=== PATIENT | male | born 1980 | race Caucasian/White ===

== ENCOUNTER 2024-01-06 16:42 | Observation (INO) ==
--- NOTE | 2024-01-06 17:19 | Emergency Department Note ---
Impression & Plan Alcoholic intoxication ED Provider Note NAME: JUANCHO LAFLEUR AGE: 43 SEX: M : 1980 ARRIVES VIA: Walk-In INFORMANT: Patient ED PROVIDER(S): Zaheer Metz MD CHIEF COMPLAINT: Detox request MEDICAL DECISION MAKING: Patient presents due to concern for D Crocs request. IV was established and blood work was obtained. CIWA protocol initiated. Patient is normal white count hemoglobin of 13.1 with normal platelet count. Kidney function is unremarkable. Mild transaminitis with an AST and ALT of 80 and 101. Likely consistent with the patient's alcohol use. Alcohol 368. ED case management did call [facility] and there were no beds until Saturday. The patient was not amenable for inpatient detox anywhere else other than [facility] at this time. Patient was ordered IV fluids did receive banana bag. The patient was requesting to go home. Patient was given a first dose of Librium as well as a another dose for home and a subsequent prescription. I did inform the ED physician Dr. Zepeda that the patient was pending transportation home provided a sober ride. Discussion w/ other healthcare providers: None Prior /Outside records reviewed: None Differential diagnosis: Alcohol intoxication, toxicologic, infection, hypoglycemia, electrolyte abnormalities, cardiac sources, intracerebral event, neurologic, trauma, as well as other pathologies. Diagnostics, as interpreted by me: ECG: None Cardiac monitoring: An order was placed for continuous cardiac monitoring. The monitor shows a rate of 95 with sinus rhythm. Patient was placed on pulse oximetry Medical decision rules: None Imaging studies: None HPI: Patient presents due to concern for alcohol intoxication and detox request. The patient states that he has been drinking 15 beers a day last drink at 4 PM for the last 5 or 6 days. The patient states that prior to this he had been sober for about 5 or 6 months. And prior to that he has had sobriety for years in duration. The patient states that he did have recent issues with a relationship which caused him to drink again. The patient has been drinking light beer Labat. Patient denies any chest pains or shortness of breath. No nausea or vomiting. The patient has had prior withdrawal but no seizures or DTs. PAST MEDICAL HISTORY: See Below PAST SURGICAL HISTORY: See Below SOCIAL HISTORY: See Below HOME MEDICATIONS: See Below ALLERGIES: See Below VITALS: See Below PHYSICAL EXAMINATION: GENERAL: NAD, non-toxic. Wearing glasses. EYE EXAM: Normal conjunctiva. PERRL, no anisocoria and EOM's grossly intact w/o pain. OROPHARYNX: Moist mucus membranes, grossly normal dentition. NECK: Trachea midline, no stridor. LUNGS: Clear to auscultation. Normal chest wall mechanics. HEART: NSR, no MRG. ABDOMEN: Abdomen soft, non-tender, no masses, no rebound or guarding. BACK: No CVA TTP. SKIN: No rashes and no bruising. UPPER EXTREMITIES: Upper extremities are grossly normal. LOWER EXTREMITIES: Grossly normal, no edema. NEURO EXAM: A&O x3, cranial nerves II-XII grossly intact, slow deliberate speech, moves all 4 extremities. Past Med/Surg History Problem List Alcohol withdrawal Alcoholic intoxication (Acute) Social History Smoking Status: Former smoker Tobacco Type: E-cigarettes / Vaping Smoking End Date: "2 years ago"; Hx Alcohol Use: Yes Alcohol type: beer Hx Substance Use: No Preferred Language: Korean Communication Ability: Effective Risk And Insurance Consultant Required: No Beliefs That Will Affect Care: None Current Living Situation: Alone Other Information That Helps Us Care for You: No Feels Safe at Home: Yes Safety Concerns: Feels Safe At This Time Allergies Allergies Allergy/AdvReac Type Severity Reaction Status Date / Time No Known Allergies Allergy Unverified 01/06/24 19:16 Home Meds Previous Rx's Medication Instructions Recorded chlordiazepoxide HCl 25 mg capsule See Rx Instructions .Route 01/06/24 .COMPLEX #20 caps Results & Data (ED) Vital Signs Vital Signs - 24 hr 01/06/24 16:55 01/06/24 17:24 01/06/24 17:26 Temperature 36.9 C Temperature Source Temporal Artery Scan Pulse Rate 95 H Pulse Rate [Apical] 79 Pulse Rate from SpO2 Sensor Pulse Rhythm [Apical] Regular Respiratory Rate 16 20 Respiratory Effort / Characteristics Non-Labored Spontaneous Non-Labored Spontaneous Respiratory Depth Normal Normal Respiratory Pattern Regular Blood Pressure 156/101 H 156/102 H Blood Pressure [Right Arm] 156/102 H Blood Pressure Mean 119 118 Blood Pressure Mean [Right Arm] 120 Blood Pressure Position Sitting Pulse Oximetry 98 98 Oxygen Delivery Method Room Air Room Air Sepsis Recent Fever Within 48 Hours No Sepsis New/Unexplained Change in Mental Status N/A Sepsis Action Taken by Nursing No Action Required 01/06/24 17:27 01/06/24 17:27 01/06/24 17:30 Temperature Temperature Source Pulse Rate 76 66 Pulse Rate [Apical] Pulse Rate from SpO2 Sensor 67 Pulse Rhythm [Apical] Respiratory Rate 20 15 Respiratory Effort / Characteristics Respiratory Depth Respiratory Pattern Blood Pressure 125/95 Blood Pressure [Right Arm] Blood Pressure Mean 110 Blood Pressure Mean [Right Arm] Blood Pressure Position Pulse Oximetry 99 99 Oxygen Delivery Method Room Air Sepsis Recent Fever Within 48 Hours Sepsis New/Unexplained Change in Mental Status Sepsis Action Taken by Nursing 01/06/24 17:30 01/06/24 17:40 01/06/24 18:06 Temperature Temperature Source Pulse Rate 82 82 Pulse Rate [Apical] Pulse Rate from SpO2 Sensor 82 69 Pulse Rhythm [Apical] Respiratory Rate 21 Respiratory Effort / Characteristics Respiratory Depth Respiratory Pattern Blood Pressure Blood Pressure [Right Arm] Blood Pressure Mean Blood Pressure Mean [Right Arm] Blood Pressure Position Pulse Oximetry 96 97 Oxygen Delivery Method Sepsis Recent Fever Within 48 Hours Sepsis New/Unexplained Change in Mental Status Sepsis Action Taken by Nursing 01/06/24 18:07 01/06/24 18:15 01/06/24 18:27 Temperature Temperature Source Pulse Rate 80 68 Pulse Rate [Apical] Pulse Rate from SpO2 Sensor Pulse Rhythm [Apical] Respiratory Rate 15 14 Respiratory Effort / Characteristics Respiratory Depth Respiratory Pattern Blood Pressure 133/87 Blood Pressure [Right Arm] Blood Pressure Mean 100 Blood Pressure Mean [Right Arm] Blood Pressure Position Pulse Oximetry Oxygen Delivery Method Sepsis Recent Fever Within 48 Hours Sepsis New/Unexplained Change in Mental Status Sepsis Action Taken by Nursing 01/06/24 18:30 01/06/24 18:33 01/06/24 18:42 Temperature Temperature Source Pulse Rate 76 65 Pulse Rate [Apical] Pulse Rate from SpO2 Sensor Pulse Rhythm [Apical] Respiratory Rate 20 10 L Respiratory Effort / Characteristics Respiratory Depth Respiratory Pattern Blood Pressure 126/88 Blood Pressure [Right Arm] Blood Pressure Mean 94 Blood Pressure Mean [Right Arm] Blood Pressure Position Pulse Oximetry Oxygen Delivery Method Sepsis Recent Fever Within 48 Hours Sepsis New/Unexplained Change in Mental Status Sepsis Action Taken by Nursing 01/06/24 18:54 01/06/24 19:00 01/06/24 19:03 Temperature Temperature Source Pulse Rate 67 Pulse Rate [Apical] 72 Pulse Rate from SpO2 Sensor Pulse Rhythm [Apical] Respiratory Rate 13 20 Respiratory Effort / Characteristics Non-Labored Spontaneous Respiratory Depth Normal Respiratory Pattern Blood Pressure 125/87 Blood Pressure [Right Arm] 125/87 Blood Pressure Mean 105 Blood Pressure Mean [Right Arm] 99 Blood Pressure Position Pulse Oximetry 96 Oxygen Delivery Method Sepsis Recent Fever Within 48 Hours Sepsis New/Unexplained Change in Mental Status Sepsis Action Taken by Nursing 01/06/24 19:03 01/06/24 21:48 01/06/24 21:59 Temperature Temperature Source Pulse Rate 75 102 H Pulse Rate [Apical] 95 H Pulse Rate from SpO2 Sensor Pulse Rhythm [Apical] Respiratory Rate 11 L 20 Respiratory Effort / Characteristics Respiratory Depth Respiratory Pattern Blood Pressure Blood Pressure [Right Arm] 149/109 H Blood Pressure Mean Blood Pressure Mean [Right Arm] 122 Blood Pressure Position Pulse Oximetry 95 Oxygen Delivery Method Room Air Sepsis Recent Fever Within 48 Hours Sepsis New/Unexplained Change in Mental Status Sepsis Action Taken by Nursing 01/06/24 22:24 Temperature 36.9 C Temperature Source Pulse Rate 96 H Pulse Rate [Apical] Pulse Rate from SpO2 Sensor Pulse Rhythm [Apical] Respiratory Rate 20 Respiratory Effort / Characteristics Respiratory Depth Respiratory Pattern Blood Pressure 157/96 H Blood Pressure [Right Arm] Blood Pressure Mean 116 Blood Pressure Mean [Right Arm] Blood Pressure Position Pulse Oximetry 99 Oxygen Delivery Method Room Air Sepsis Recent Fever Within 48 Hours Sepsis New/Unexplained Change in Mental Status Sepsis Action Taken by Shelter Medications Current Medication List: was personally reviewed by me Laboratory Data Attestation: I reviewed the patient's lab results. 01/07/24 05:40 01/07/24 05:40 Lab Results 01/06/24 Range/Units 17:02 WBC 5.09 (4.8-10.8) K/ul RBC 7.06 H (4.70-6.10) M/uL Hgb 13.1 L (14.0-18.0) g/dl Hct 42.3 (42.0-52.0) % MCV 59.9 L (80.0-100.0) fL MCH 18.6 L (25.0-34.0) pg MCHC 31.0 L (32.0-36.0) g/dL RDW Std Deviation 30.9 L (36.4-46.3) fL RDW Coeff of Leda 18.3 H (11.5-14.5) % Plt Count 173 (130-400) K/uL MPV 10.7 (9.4-12.4) fL Immature Gran % (Auto) 0.4 % Neut % (Auto) 59.2 % Lymph % (Auto) 31.0 % [place] % (Auto) 8.6 % Eos % (Auto) 0.2 % Baso % (Auto) 0.6 % Neut # (Auto) 3.01 (1.40-6.50) K/uL Lymph # (Auto) 1.58 (1.20-3.40) K/uL [place] # (Auto) 0.44 (0.11-0.59) K/uL Eos # (Auto) 0.01 (0.00-0.50) K/uL Baso # (Auto) 0.03 (0.00-0.20) K/uL Immature Gran # (Auto) 0.02 (0.01-0.20) K/uL Absolute Nucleated RBC 0.04 (0.00-0.12) K/uL Nucleated RBC % (auto) 0.8 % Hypochromasia Present Microcytosis Present Target Cells 1+ Tear Drop Cells 1+ PT 10.0 (9.0-12.0) Seconds INR 0.9 (0.9-1.1) Sodium 140 (136-145) mmol/L Potassium 4.2 (3.5-5.1) mmol/L Chloride 101 (98-107) mmol/L Carbon Dioxide 30 (21-32) mmol/L Anion Gap 9 (3-11) BUN 4 L (6-23) mg/dl Creatinine 0.77 (0.6-1.4) mg/dl Est Cr Clr Drug Dosing 123.7 ml/min eGFR 113.92 BUN/Creatinine Ratio 5.2 L (10-20) Glucose 110 H (70-99(Fasting)) mg/dl Calcium 9.2 (8.6-10.3) mg/dl Magnesium 2.1 (1.7-2.4) mg/dl Total Bilirubin 0.7 (0.2-1.0) mg/dl Direct Bilirubin 0.1 (0-0.2) mg/dl AST 80 H (13-39) U/L ALT 101 H (7-52) U/L Alkaline Phosphatase 61 (34-104) U/L Total Protein 7.2 (6.0-8.3) gm/dl Albumin 4.7 (3.4-5.0) gm/dl Lipase 21 (11-82) U/L Ethyl Alcohol mg/dL 368.9 H (<10.0) mg/dl Administered Medications Discontinued Medications Chlordiazepoxide HCl (Chlordiazepoxide Hcl 25 Mg Cap) 50 mg PO NOW ONE Stop: 01/06/24 19:05 Last Admin: 01/06/24 20:26 Dose: 50 mg Documented By: SORAYA Chlordiazepoxide HCl (Chlordiazepoxide 25mg Starting Dose) 25 mg PO Q6H FRAN; Protocol Stop: 01/07/24 20:01 Last Admin: 01/07/24 08:13 Dose: 25 mg Documented By: Admin: 01/07/24 01:10 Dose: 25 mg Documented By: FABIEN Clonidine HCl (Clonidine Hcl 0.1 Mg Tab) 0.1 mg PO NOW ONE Stop: 01/06/24 22:49 Last Admin: 01/06/24 23:44 Dose: 0.1 mg Documented By: FABIEN Folic Acid (F[facility] Acid 1 Mg Tab) [facility] [place] Stop: 02/06/24 08:59 Last Admin: 01/07/24 08:12 Dose: 1 mg Documented By: NANCY Sodium Chloride (Nss) 1,000 mls @ 999 mls/hr IV .Q1H1M ONE Stop: 01/06/24 18:59 Last Infusion: 01/06/24 19:00 Dose: Infused Documented By: Admin: 01/06/24 18:07 Dose: 999 mls/hr Documented By: SIDDHARTH Multivitamins 10 ml/ Thiamine HCl 100 mg/ Folic Acid 1 mg/Sodium Chloride 1,011.2 mls @ 500 mls/hr IV .Q2H2M ONE Stop: 01/06/24 20:00 Last Infusion: 01/06/24 20:30 Dose: Infused Documented By: Admin: 01/06/24 19:02 Dose: 500 mls/hr Documented By: SORAYA Promethazine HCl (Phenergan) 6.25 mg in 50.25 mls @ 201 mls/hr IV Q6H PRN PRN Reason: Nausea And Vomiting Stop: 02/05/24 22:36 Last Infusion: 01/07/24 06:25 Dose: Infused Documented By: Admin: 01/07/24 06:10 Dose: 201 mls/hr Documented By: FABIEN Lorazepam (Lorazepam 2 Mg/1 Ml Vial) 1 mg IV ONE PRN; Protocol PRN Reason: EtoH Withdrawal AWSS 6-10 Last Admin: 01/06/24 18:54 Dose: 1 mg Documented By: SORAYA Lorazepam (Lorazepam 2 Mg/1 Ml Vial) 1 mg IV UD PRN; Protocol PRN Reason: EtOH Withdrawal AWSS Score 6,7 Stop: 02/05/24 17:58 Last Admin: 01/07/24 08:11 Dose: 1 mg Documented By: NANCY Lorazepam (Lorazepam 2 Mg/1 Ml Vial) 2 mg IV UD PRN; Protocol PRN Reason: EtOH Withdrawal AWSS Score 8,9 Stop: 02/05/24 17:58 Last Admin: 01/07/24 00:11 Dose: 2 mg Documented By: FABIEN Lorazepam (Lorazepam 2 Mg/1 Ml Vial) 1 mg IV NOW STA Stop: 01/06/24 21:43 Last Admin: 01/06/24 22:23 Dose: 1 mg Documented By: SIDDHARTH Multivitamins (Multivitamin Tab) 1 tab PO [facility] Stop: 02/06/24 08:59 Last Admin: 01/07/24 08:11 Dose: 1 tab Documented By: NANCY Thiamine HCl (Thiamine Hcl 100 Mg Tab) [facility] [place] Stop: 02/06/24 08:59 Last Admin: 01/07/24 08:12 Dose: 100 mg Documented By: NANCY Discharge Plan Visit Data Chief Complaint: Alcohol Withdrawal Stated Complaint: ALCOHOL POISONING,RINGING IN THE EARS ED Provider: Pawan Bird Discharge Problem: Alcoholic intoxication Patient Disposition: Home - Self-Care Discharge Instructions Interventions: ED Discharge Assessment Last Done: 01/06/24 23:15 Discharge Problem: Alcoholic intoxication Qualifiers: Complication of substance-induced condition: uncomplicated Qualified Code(s): F 10.920 - Alcohol use, unspecified with intoxication, uncomplicated
[2024-01-06 17:51] LABS: BUN Creatinine Ratio 5.2 (10-20); Calcium 9.2 mg/dl (8.6-10.3); Creatinine Clr Calc Pharmacy 123.7 ml/min; Potassium 4.2 mmol/L (3.5-5.1)
[2024-01-06] MEDS ORDERED: Ativan IV Alcohol Withdrawal--Active Protocol IV PRN (17:59)
[2024-01-06] MEDS ORDERED: LORazepam 2 MG/1 ML VIAL IV PRN (17:59)
[2024-01-06 18:04] LABS: Hematocrit (blood only) 42.3 % (42.0-52.0); Hemoglobin 13.1 g/dl (14.0-18.0); Mean Corpuscular Hemoglobin 18.6 pg (25.0-34.0); Mean Corpuscular Volume 59.9 fL (80.0-100.0); Mean Platelet Volume 10.7 fL (9.4-12.4); Nucleated RBC # (auto) 0.04 K/uL (0.00-0.12); Nucleated RBC % (auto) 0.8 %; Platelet Count 173 K/uL (130-400); RDW Coefficient of Variation 18.3 % (11.5-14.5); RDW Standard Deviation 30.9 fL (36.4-46.3); Red Blood Count 7.06 M/uL (4.70-6.10); White Blood Count 5.09 K/ul (4.8-10.8)
[2024-01-06 18:06] LABS: Albumin Level 4.7 gm/dl (3.4-5.0); Bilirubin Direct 0.1 mg/dl (0-0.2); Bilirubin,Total 0.7 mg/dl (0.2-1.0); Total Protein 7.2 gm/dl (6.0-8.3)
[2024-01-06] MEDS: SODIUM CHLORIDE 0.9% 1,000 ML IV ONE (18:07)
[2024-01-06 18:11] LABS: Basophils # (auto) 0.03 K/uL (0.00-0.20); Basophils % (auto) 0.6 %; Eosinophils # (auto) 0.01 K/uL (0.00-0.50); Eosinophils % (auto) 0.2 %; Immature Granulocytes # (auto) 0.02 K/uL (0.01-0.20); Immature Granulocytes % (auto) 0.4 %; Lymphocytes # (auto) 1.58 K/uL (1.20-3.40); Microcytosis Present; Monocytes # (auto) 0.44 K/uL (0.11-0.59); Monocytes % (auto) 8.6 %; Neutrophils # (auto) 3.01 K/uL (1.40-6.50); Neutrophils % (auto) 59.2 %; Target Cells 1+; Tear Drop Cells 1+
[2024-01-06] MEDS: LORazepam 2 MG/1 ML VIAL IV PRN (18:54)
[2024-01-06] MEDS: MULTI-VITAMIN INFUSION 10 ML, THIAMINE HCL 100 MG, FOLIC ACID 1 MG in SODIUM CHLORIDE 0... IV ONE (19:02)
[2024-01-06] MEDS: chlordiazePOXIDE HCl 25 MG CAP PO ONE (20:26)
--- NOTE | 2024-01-06 21:58 | Emergency Department Note ---
ED Visit Note I was asked by the bedside nurse to assist with disposition of the patient as he was scheduled for discharge pending a sober ride home. Nurse received a phone call from the patient's daughter stating that she had concerns that he was not safe to be discharged. Patient lives alone and she was concerned that he will continue to binge drink and might be potentially a harm to himself. I did discuss the patient's presentation with the patient's daughter, Ida, over the phone. She strongly prefers that the patient be admitted to the hospital to arrange for placement to inpatient rehab. I addressed this with the patient, he eventually was agreeable to stay and he was beginning to exhibit signs of withdrawal as he had some resting tremors. He was ordered a dose of IV Ativan. Given the concern for withdrawal with the patient's elevated alcohol level, I did discuss the patient's presentation with the on-call hospitalist for [facility] [place], Dr. Gunter, the patient was placed for admission in stable condition for further care. Diagnosis: Alcohol intoxication with acute withdrawal symptoms Disposition: Admission Pawan Bird DO .
[2024-01-06] MEDS: LORazepam 2 MG/1 ML VIAL IV STA (22:23)
[2024-01-06 22:27] LABS: Magnesium 2.1 mg/dl (1.7-2.4)
--- NOTE | 2024-01-06 22:35 | History & Physical Report ---
Date of Service January 06, 2024 Assessment & Plan (1) Alcohol withdrawal: Plan: Alcohol withdrawal Mood disorder, currently not on maintenance medications, does not feel previous medications have helped before, denies suicidality bronchial asthma, stable Alcoholic hepatitis, likely good prognosis on Maddrey's DF score given normal coags chronic anemia, hemoglobin better than baseline likely secondary to hemoconcentration Hyperglycemia with DM past tobacco abuse Admit to medical telemetry DARCY S, DT precautions Psych consult re: depression Check hemoglobin A1c DVT prophylaxis with SCDs Full code Text document was generated using [employer] voice recognition software. It may contain grammatical or spelling errors. Kindly contact undersigned for clarification of any documentation item in question. History of Present Illness Chief Complaint: Detox Primary Care Provider: Nancy Alonso MD History obtained from patient and records. Medical history significant for bronchial asthma, mood disorder, chronic anemia (baseline hemoglobin 11), thalassemia minor, alcohol abuse, past tobacco abuse. Patient presented to ER today requesting for detox. Admits to depression but denies suicidality. Denies chest pain, SOB, abdominal pain. Transient headache symptoms. Patient will be able to be accepted at [facility] addiction center until this weekend. Patient and family have concerns about patient ability to be safe at home on his own. Patient later noted to be tremulous at the ER. 2 doses of IV Ativan and Librium administered at the ER. No prior history of alcohol withdrawal seizures. Patient recalls detox admission at some facility where he was given phenobarbital. 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 Allergies Allergy/AdvReac Type Severity Reaction Status Date / Time No Known Allergies Allergy Unverified 01/06/24 19:16 Home Medications Medication Instructions Recorded Confirmed Type chlordiazepoxide HCl 25 mg capsule See Rx Instructions .Route 01/06/24 Rx .COMPLEX #20 caps Past Med/Surg History Problem List (Updated 01/07/24 @ 03:47 by Manuel Gunter MD) Alcohol withdrawal Alcoholic intoxication (Acute) Social History Smoking Status: Former smoker Tobacco Type: E-cigarettes / Vaping Smoking End Date: "2 years ago"; Hx Alcohol Use: Yes Alcohol type: beer Hx Substance Use: No Preferred Language: Malaysian Communication Ability: Effective Harbormaster Required: No Beliefs That Will Affect Care: None Current Living Situation: Alone Other Information That Helps Us Care for You: No Feels Safe at Home: Yes Safety Concerns: Feels Safe At This Time Review of Systems Review of Systems: As per HPI, all other systems reviewed and negative Physical Exam Physical Exam: GENERAL: Comfortable, slightly anxious, tremulous, no respiratory distress SKIN: Pallor, warm HEENT: Bespectacled, pale, palpebral conjunctivae, no ptosis, dry buccal mucosa NECK : Supple, no tenderness CHEST : CTA, no tenderness HEART : RRR, no obvious murmurs ABDOMEN: Some distention, nontender EXTREMITIES : No LE swelling/tenderness, no other conspicuous deformities noted NEUROLOGIC : Coherent, no facial asymmetry, tremulous, no other gross focality Results & Data Results & Data Vital Signs (Past 12 Hours) Vital Signs Temp Pulse Pulse Resp BP BP Pulse Ox 01/06/24 22:24 36.9 C 96 H 20 157/96 H 99 01/06/24 21:59 95 H 20 149/109 H 95 01/06/24 21:48 102 H 01/06/24 19:03 75 11 L 01/06/24 19:03 125/87 01/06/24 19:00 72 20 125/87 96 01/06/24 18:54 67 13 01/06/24 18:42 65 10 L 01/06/24 18:33 76 20 01/06/24 18:30 126/88 01/06/24 18:27 68 14 01/06/24 18:15 80 15 01/06/24 18:07 133/87 01/06/24 18:06 97 01/06/24 17:40 82 01/06/24 17:30 82 21 96 01/06/24 17:30 125/95 01/06/24 17:27 66 15 99 01/06/24 17:27 76 20 99 01/06/24 17:26 79 20 156/102 H 98 01/06/24 17:24 156/102 H 01/06/24 16:55 36.9 C 95 H 16 156/101 H 98 O2 Del Method 01/06/24 22:24 Room Air 01/06/24 21:59 Room Air 01/06/24 21:48 01/06/24 19:03 01/06/24 19:03 01/06/24 19:00 01/06/24 18:54 01/06/24 18:42 01/06/24 18:33 01/06/24 18:30 01/06/24 18:27 01/06/24 18:15 01/06/24 18:07 01/06/24 18:06 01/06/24 17:40 01/06/24 17:30 01/06/24 17:30 01/06/24 17:27 01/06/24 17:27 Room Air 01/06/24 17:26 Room Air 01/06/24 17:24 01/06/24 16:55 Room Air Laboratory Results Laboratory Results WBC 5.09 K/ul (4.8-10.8) 01/06/24 17:02 RBC 7.06 M/uL (4.70-6.10) H 01/06/24 17:02 Hgb 13.1 g/dl (14.0-18.0) L 01/06/24 17:02 Hct 42.3 % (42.0-52.0) 01/06/24 17:02 MCV 59.9 fL (80.0-100.0) L 01/06/24 17:02 MCH 18.6 pg (25.0-34.0) L 01/06/24 17:02 MCHC 31.0 g/dL (32.0-36.0) L 01/06/24 17:02 RDW Std Deviation 30.9 fL (36.4-46.3) L 01/06/24 17:02 RDW Coeff of Ldea 18.3 % (11.5-14.5) H 01/06/24 17:02 Plt Count 173 K/uL (130-400) 01/06/24 17:02 MPV 10.7 fL (9.4-12.4) 01/06/24 17:02 Immature Gran % (Auto) 0.4 % 01/06/24 17:02 Neut % (Auto) 59.2 % 01/06/24 17:02 Lymph % (Auto) 31.0 % 01/06/24 17:02 [place] % (Auto) 8.6 % 01/06/24 17:02 Eos % (Auto) 0.2 % 01/06/24 17:02 Baso % (Auto) 0.6 % 01/06/24 17:02 Neut # (Auto) 3.01 K/uL (1.40-6.50) 01/06/24 17:02 Lymph # (Auto) 1.58 K/uL (1.20-3.40) 01/06/24 17:02 [place] # (Auto) 0.44 K/uL (0.11-0.59) 01/06/24 17:02 Eos # (Auto) 0.01 K/uL (0.00-0.50) 01/06/24 17:02 Baso # (Auto) 0.03 K/uL (0.00-0.20) 01/06/24 17:02 Immature Gran # (Auto) 0.02 K/uL (0.01-0.20) 01/06/24 17:02 Absolute Nucleated RBC 0.04 K/uL (0.00-0.12) 01/06/24 17:02 Nucleated RBC % (auto) 0.8 % 01/06/24 17:02 Microcytosis Present 01/06/24 17:02 Target Cells 1+ 01/06/24 17:02 Tear Drop Cells 1+ 01/06/24 17:02 Sodium 140 mmol/L (136-145) 01/06/24 17:02 Potassium 4.2 mmol/L (3.5-5.1) 01/06/24 17:02 Chloride 101 mmol/L (98-107) 01/06/24 17:02 Carbon Dioxide 30 mmol/L (21-32) 01/06/24 17:02 Anion Gap 9 (3-11) 01/06/24 17:02 BUN 4 mg/dl (6-23) L 01/06/24 17:02 Creatinine 0.77 mg/dl (0.6-1.4) 01/06/24 17:02 Est Cr Clr Drug Dosing 123.7 ml/min 01/06/24 17:02 eGFR 113.92 01/06/24 17:02 BUN/Creatinine Ratio 5.2 (10-20) L 01/06/24 17:02 Glucose 110 mg/dl (70-99(Fasting)) H 01/06/24 17:02 Calcium 9.2 mg/dl (8.6-10.3) 01/06/24 17:02 Magnesium 2.1 mg/dl (1.7-2.4) 01/06/24 17:02 Total Bilirubin 0.7 mg/dl (0.2-1.0) 01/06/24 17:02 Direct Bilirubin 0.1 mg/dl (0-0.2) 01/06/24 17:02 AST 80 U/L (13-39) H 01/06/24 17:02 ALT 101 U/L (7-52) H 01/06/24 17:02 Alkaline Phosphatase 61 U/L (34-104) 01/06/24 17:02 Total Protein 7.2 gm/dl (6.0-8.3) 01/06/24 17:02 Albumin 4.7 gm/dl (3.4-5.0) 01/06/24 17:02 Lipase 21 U/L (11-82) 01/06/24 17:02 Ethyl Alcohol mg/dL 368.9 mg/dl (<10.0) H 01/06/24 17:02 Diagnostic Findings EKG as per my interpretation :Rate 85, NSR, LAD, LAFB, no ischemia
[2024-01-06] MEDS ORDERED: oxyCODONE HCL IR 5 MG TAB (IMMEDIATE RELEASE) PO PRN (22:37)
[2024-01-06] MEDS ORDERED: ACETAMINOPHEN 500 MG TAB PO PRN (22:37)
[2024-01-06] MEDS ORDERED: chlordiazePOXIDE ALCOHOL WITHDRAWL 25MG PO STA (22:37)
[2024-01-06 22:38] LABS: INR 0.9 (0.9-1.1)
[2024-01-06] MEDS: cloNIDine HCL 0.1 MG TAB PO ONE (23:44)
[2024-01-07] MEDS: LORazepam 2 MG/1 ML VIAL IV PRN ×2 (00:11→08:11)
[2024-01-07] MEDS: CHLORDIAZEPOXIDE 25MG STARTING DOSE PO SCH (01:10)
[2024-01-07] MEDS: PROMETHAZINE 6.25 MG/50.25 ML BAG IV PRN (06:10)
[2024-01-07 06:23] LABS: Hematocrit (blood only) 34.8 % (42.0-52.0); Mean Corpuscular Hemoglobin 18.8 pg (25.0-34.0); Mean Corpuscular Hgb Conc 31.6 g/dL (32.0-36.0); Mean Corpuscular Volume 59.5 fL (80.0-100.0); Mean Platelet Volume 10.7 fL (9.4-12.4); Nucleated RBC # (auto) 0.03 K/uL (0.00-0.12); Nucleated RBC % (auto) 0.5 %; Platelet Count 145 K/uL (130-400); RDW Coefficient of Variation 16.9 % (11.5-14.5); RDW Standard Deviation 30.6 fL (36.4-46.3); Red Blood Count 5.85 M/uL (4.70-6.10)
[2024-01-07 06:24] LABS: Albumin Globulin Ratio 2.1 (0.9-2); Calcium 8.6 mg/dl (8.6-10.3); Creatinine Clr Calc Pharmacy 136.1 ml/min; Globulin 1.9 gm/dl (2.5-4.0); Total Protein 5.9 gm/dl (6.0-8.3)
[2024-01-07 06:35] LABS: Basophilic Stippling Occasional; Basophils # (auto) 0.03 K/uL (0.00-0.20); Basophils % (auto) 0.5 %; Immature Granulocytes # (auto) 0.03 K/uL (0.01-0.20); Immature Granulocytes % (auto) 0.5 %; Lymphocytes % (auto) 26.2 %; Microcytosis Present; Monocytes # (auto) 0.46 K/uL (0.11-0.59); Monocytes % (auto) 7.5 %; Neutrophils # (auto) 3.98 K/uL (1.40-6.50); Neutrophils % (auto) 65.3 %; Polychromasia 1+; Tear Drop Cells Occasional
[2024-01-07 07:17] LABS: Hypochromasia Present
[2024-01-07 07:50] LABS: Estimated Average Glucose 105 mg/dl; Hemoglobin A1C 5.3 % (4.5-5.6)
[2024-01-07] MEDS: MULTIVITAMIN TAB PO SCH (08:11)
[2024-01-07] MEDS: THIAMINE HCL 100 MG TAB PO SCH (08:12)
[2024-01-07] MEDS: FOLIC ACID 1 MG TAB PO SCH (08:12)
--- NOTE | 2024-01-07 08:48 | Electrocardiogram Report ---
Test Reason : Blood Pressure : */* mmHG Vent. Rate : 87 BPM Atrial Rate : 87 BPM P-R Int : 138 ms QRS Dur : 90 ms QT Int : 386 ms P-R-T Axes : -13 3 -25 degrees QTcB Int : 464 ms Normal sinus rhythm Low voltage QRS Borderline ECG When compared with ECG of 29-Jun-2021 15:40, No significant change was found Confirmed by Nasir Stovall ([id number]) on 01/07/2024 8:47:45 AM Referred By: REFERRED SELF Confirmed By: Nasir Stovall
--- NOTE | 2024-01-07 11:56 | Hospitalist Progress Note ---
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 Chronic anemia Hb stable Monitor Past tobacco abuse Per records DVT Px: SCDs Code Status Full code Admission and Anticipated Discharge Date Admission Date: January 06, 2024 Subjective Patient is seen and examined at bedside States feeling tired and sleepy this morning during my encounter Denies any chest pain, dizziness, nausea, vomiting, abdominal pain Review of Systems 2 Review of Systems: All systems reviewed & are unremarkable except as noted in Subjective Physical Exam Physical Exam: Physical Exam: Vitals signs as noted above General Appearance:Moderately built and nourished, no apparent distress Head: normocephalic, Atraumatic Eyes: normal inspection, EOMI Neck: supple, Trachea midline Respiratory/Chest: Normal breath sounds, CTA, No accessory muscle use Cardiovascular: S1, S2, No murmur Abdomen/GI:Soft, Non tender, Bowel sounds present Extremities/Musculoskeletal:normal inspection, no edema Neurologic/Psych:AAOX3, grossly no focal neurological deficits Skin: normal color, warm Results & Data Results & Data Vital Signs (Past 12 Hours) Vital Signs Temp Pulse Pulse Resp BP BP Pulse Ox 01/07/24 11:33 36.6 C 85 18 141/87 H 99 01/07/24 07:49 36.8 C 82 18 142/70 H 96 01/07/24 05:58 88 01/07/24 05:35 36.5 C 91 H 16 137/93 100 01/07/24 03:03 36.6 C 85 16 134/74 97 01/07/24 01:04 36.8 C 102 H 16 141/87 H 96 01/07/24 00:02 O2 Del Method 01/07/24 11:33 Room Air 01/07/24 07:49 Room Air 01/07/24 05:58 01/07/24 05:35 Room Air 01/07/24 03:03 Room Air 01/07/24 01:04 Room Air 01/07/24 00:02 Room Air Laboratory Results Short CBC 01/06/24 01/07/24 Range/Units 17:02 05:40 WBC 5.09 6.10 (4.8-10.8) K/ul Hgb 13.1 L 11.0 L (14.0-18.0) g/dl Hct 42.3 34.8 L (42.0-52.0) % Plt Count 173 145 (130-400) K/uL BMP 01/06/24 01/07/24 17:02 05:40 Sodium 140 137 Potassium 4.2 4.0 Chloride 101 102 Carbon Dioxide 30 27 BUN 4 L 7 Creatinine 0.77 0.70 Glucose 110 H 99 Calcium 9.2 8.6 Liver Function 01/06/24 01/07/24 Range/Units 17:02 05:40 Total Bilirubin 0.7 1.0 (0.2-1.0) mg/dl Direct Bilirubin 0.1 (0-0.2) mg/dl AST 80 H 58 H (13-39) U/L ALT 101 H 81 H (7-52) U/L Alkaline Phosphatase 61 53 (34-104) U/L Albumin 4.7 4.0 (3.4-5.0) gm/dl
--- NOTE | 2024-01-07 12:15 | Communication Note ---
Date of Service: January 07, 2024 Received a message from RN that patient prefers to be discharged. Patient was explained the risks and complications of leaving completing treatment for alcohol withdrawal. Patient understands and still prefers to be discharged home. He plans to leave AGAINST MEDICAL ADVICE. Advised to follow-up with primary care physician as soon as possible.
--- NOTE | 2024-01-07 12:16 | Discharge Summary ---
Date of Service January 07, 2024 Admission HPI Per Admitting Provider History obtained from patient and records. Medical history significant for bronchial asthma, mood disorder, chronic anemia (baseline hemoglobin 11), thalassemia minor, alcohol abuse, past tobacco abuse. Patient presented to ER today requesting for detox. Admits to depression but denies suicidality. Denies chest pain, SOB, abdominal pain. Transient headache symptoms. Patient will be able to be accepted at [facility] until this weekend. Patient and family have concerns about patient ability to be safe at home on his own. Patient later noted to be tremulous at the ER. 2 doses of IV Ativan and Librium administered at the ER. No prior history of alcohol withdrawal seizures. Patient recalls detox admission at some facility where he was given phenobarbital. 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6 g/dL (32.0-36.0) L 01/07/24 05:40 RDW Std Deviation 30.6 fL (36.4-46.3) L 01/07/24 05:40 RDW Coeff of Leda 16.9 % (11.5-14.5) H 01/07/24 05:40 Plt Count 145 K/uL (130-400) 01/07/24 05:40 MPV 10.7 fL (9.4-12.4) 01/07/24 05:40 Immature Gran % (Auto) 0.5 % 01/07/24 05:40 Neut % (Auto) 65.3 % 01/07/24 05:40 Lymph % (Auto) 26.2 % 01/07/24 05:40 [place] % (Auto) 7.5 % 01/07/24 05:40 Eos % (Auto) 0.0 % 01/07/24 05:40 Baso % (Auto) 0.5 % 01/07/24 05:40 Neut # (Auto) 3.98 K/uL (1.40-6.50) 01/07/24 05:40 Lymph # (Auto) 1.60 K/uL (1.20-3.40) 01/07/24 05:40 [place] # (Auto) 0.46 K/uL (0.11-0.59) 01/07/24 05:40 Eos # (Auto) 0.00 K/uL (0.00-0.50) 01/07/24 05:40 Baso # (Auto) 0.03 K/uL (0.00-0.20) 01/07/24 05:40 Immature Gran # (Auto) 0.03 K/uL (0.01-0.20) 01/07/24 05:40 Absolute Nucleated RBC 0.03 K/uL (0.00-0.12) 01/07/24 05:40 Nucleated RBC % (auto) 0.5 % 01/07/24 05:40 Polychromasia 1+ 01/07/24 05:40 Hypochromasia Present 01/06/24 17:02 Basophilic Stippling Occasional 01/07/24 05:40 Microcytosis Present 01/07/24 05:40 Target Cells 1+ 01/06/24 17:02 Tear Drop Cells Occasional 01/07/24 05:40 PT 10.0 Seconds (9.0-12.0) 01/06/24 17:02 INR 0.9 (0.9-1.1) 01/06/24 17:02 Sodium 137 mmol/L (136-145) 01/07/24 05:40 Potassium 4.0 mmol/L (3.5-5.1) 01/07/24 05:40 Chloride 102 mmol/L (98-107) 01/07/24 05:40 Carbon Dioxide 27 mmol/L (21-32) 01/07/24 05:40 Anion Gap 8 (3-11) 01/07/24 05:40 BUN 7 mg/dl (6-23) 01/07/24 05:40 Creatinine 0.70 mg/dl (0.6-1.4) 01/07/24 05:40 Est Cr Clr Drug Dosing 136.1 ml/min 01/07/24 05:40 eGFR 117.25 01/07/24 05:40 BUN/Creatinine Ratio 10.0 (10-20) 01/07/24 05:40 Glucose 99 mg/dl (70-99(Fasting)) 01/07/24 05:40 Estimat Average Glucose 105 mg/dl 01/07/24 05:40 Hemoglobin A1c 5.3 % (4.5-5.6) 01/07/24 05:40 Calcium 8.6 mg/dl (8.6-10.3) 01/07/24 05:40 Magnesium 2.1 mg/dl (1.7-2.4) 01/06/24 17:02 Total Bilirubin 1.0 mg/dl (0.2-1.0) 01/07/24 05:40 Direct Bilirubin 0.1 mg/dl (0-0.2) 01/06/24 17:02 AST 58 U/L (13-39) H 01/07/24 05:40 ALT 81 U/L (7-52) H 01/07/24 05:40 Alkaline Phosphatase 53 U/L (34-104) 01/07/24 05:40 Total Protein 5.9 gm/dl (6.0-8.3) L 01/07/24 05:40 Albumin 4.0 gm/dl (3.4-5.0) 01/07/24 05:40 Globulin 1.9 gm/dl (2.5-4.0) L 01/07/24 05:40 Albumin/Globulin Ratio 2.1 (0.9-2) H 01/07/24 05:40 Lipase 21 U/L (11-82) 01/06/24 17:02 Ethyl Alcohol mg/dL 368.9 mg/dl (<10.0) H 01/06/24 17:02 Hospital Course (1) Alcohol withdrawal: Alcohol withdrawal Alcohol use disorder Follows with AA Alcohol level 368 On alcohol withdrawal protocol Continue thiamine, folic acid Mood disorder currently not on maintenance medications Denies suicidal thoughts Psychiatry consulted Bronchial Asthma No signs of exacerbation Saturating well on room air Alcoholic hepatitis Monitor LFTs Avoid hepatotoxic agents as able 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 Chronic anemia Hb stable Monitor Past tobacco abuse Per records DVT Px: SCDs Code Status Full code Total Time Total Time Spent Total Time Spent (In Minutes): 44 minutes Discharge Plan Discharge Items Patient Disposition: Against Medical Advice Reason For Visit: ETOH WITHDRAWAL Activity: Per Instructions section Non-emergency contact: Primary Care Provider Follow-up/Referrals: Nancy Alonso MD [Primary Care Provider] - Pending Studies at Discharge: No Stand-Alone Forms: My [facility] Drip In, Smoking Cessation Medications and DC Order Prescriptions: New chlordiazepoxide HCl 25 mg capsule See Rx Instructions .ROUTE .COMPLEX Qty: 20 0RF Rx Instructions: Take 2 tabs 4 times daily x 1 day, 2 tabs 3 times daily 2nd day, 2 tabs 2 times daily 3rd day, and 2 tablets 4th day. (20 tabs) Discharge Orders: Left Against Medical Advice (Routine); Ordered 01/07/24 Ordered By: Rodríguez Baird Admission Data Admit Date/Time: 01/06/24 22:36 Attending Provider: Rodríguez Baird Admit Provider: Manuel Gunter Primary Care Provider: Nancy Alonso
[2024-01-08] MEDS ORDERED: chlordiazePOXIDE HCl 25 MG CAP PO SCH (04:00)
[2024-01-10] MEDS ORDERED: chlordiazePOXIDE HCl 5 MG CAP PO SCH (08:00)
== END 2024-01-07 12:03 | disposition left against medical advice (07) | DRG 894 ==
LOC: ED 16:42 → INTOOBSV 22:36 → 2W 22:36

== ENCOUNTER 2024-01-14 16:56 | Inpatient (IN) ==
[2024-01-14 18:03] LABS: Acetaminophen < 3 ug/ml (10-30); Alanine Aminotransferase 97 U/L (7-52); Albumin Globulin Ratio 1.6 (0.9-2); Albumin Level 4.7 gm/dl (3.4-5.0); Alkaline Phosphatase 74 U/L (34-104); Anion Gap 13 (3-11); Aspartate Aminotransferase 94 U/L (13-39); BUN Creatinine Ratio 11.4 (10-20); Bilirubin,Total 0.8 mg/dl (0.2-1.0); Blood Urea Nitrogen 8 mg/dl (6-23); Carbon Dioxide 28 mmol/L (21-32); Chloride 94 mmol/L (98-107); Globulin 2.9 gm/dl (2.5-4.0); Glucose 147 mg/dl (70-99(Fasting)); Salicylate < 3.0 mg/dl (3.0-30); Sodium 135 mmol/L (136-145); Total Protein 7.6 gm/dl (6.0-8.3)
[2024-01-14 18:13] LABS: Hematocrit (blood only) 43.4 % (42.0-52.0); Hemoglobin 13.7 g/dl (14.0-18.0); Mean Corpuscular Hemoglobin 18.9 pg (25.0-34.0); Mean Corpuscular Hgb Conc 31.6 g/dL (32.0-36.0); Mean Corpuscular Volume 59.8 fL (80.0-100.0); Nucleated RBC # (auto) 0.07 K/uL (0.00-0.12); Nucleated RBC % (auto) 1.4 %; Platelet Count 145 K/uL (130-400); RDW Coefficient of Variation 19.8 % (11.5-14.5); RDW Standard Deviation 31.4 fL (36.4-46.3); Red Blood Count 7.26 M/uL (4.70-6.10); White Blood Count 5.02 K/ul (4.8-10.8)
[2024-01-14 18:14] LABS: Basophils # (auto) 0.04 K/uL (0.00-0.20); Basophils % (auto) 0.8 %; Eosinophils # (auto) 0.02 K/uL (0.00-0.50); Eosinophils % (auto) 0.4 %; Immature Granulocytes # (auto) 0.04 K/uL (0.01-0.20); Immature Granulocytes % (auto) 0.8 %; Lymphocytes # (auto) 1.22 K/uL (1.20-3.40); Lymphocytes % (auto) 24.3 %; Microcytosis Present; Neutrophils % (auto) 61.7 %; Target Cells 1+; Tear Drop Cells 2+
[2024-01-14 18:17] LABS: Thyroid Stimulating Hormone 1.351 uIu/ml (0.300-4.500)
--- NOTE | 2024-01-14 18:50 | Emergency Department Note ---
Impression & Plan Alcohol abuse, Alcohol withdrawal, Vomiting, Elevated liver enzymes ED Provider Note NAME: JUANCHO LAFLEUR AGE: 43 SEX: M : 1980 ARRIVES VIA: Walk-In INFORMANT: [Patient] ED PROVIDER(S): [Arnel Obrien MD] CHIEF COMPLAINT: Alcohol detox HISTORY OF PRESENT ILLNESS: The patient is a 43-year-old male who presents to the ER with complaints of the need for alcohol detox. The patient states that he has been to detox several times in the past. He was recently in our hospital a few weeks ago and left on his own. He then went to [facility] rehab center but only stayed there a day before leaving. He has been out of [facility] for 11 days and has been drinking heavily over that timeframe. Sometimes, he drinks 30 beers a day. He also drinks of vodka and scotch. The patient last had alcohol this morning. He feels like he may be going through some withdrawal. He did vomit earlier this morning. There has been no cough or congestion. No trauma. No abdominal pain. The patient presents asking to be admitted for detox. He has had DTs in the past, no previous seizure with alcohol withdrawal. PMHx/PSHx/Social Hx: See Below PHYSICAL EXAM: GENERAL: Patient is in no acute distress. Alcohol on his breath. HEENT: No acute trauma, normocephalic atraumatic, mucous membranes moist, no nasal congestion. NECK: No stridor, no adenopathy, no meningismus, trachea is midline. LUNGS: Clear to auscultation bilaterally, no wheeze, no rhonchi, breath sounds equal. HEART: Mildly tachycardic, regular rhythm, no murmurs. ABDOMEN: Soft, nontender, no peritonitis. EXTREMITIES: No cyanosis, full range of motion of all the joints without pain or difficulty. NEUROLOGIC: Oriented x 3, no acute motor or sensory deficits, no focal weakness. SKIN: No jaundice, no diaphoresis. DIFFERENTIAL DIAGNOSIS: Alcohol withdrawal, alcohol abuse, electrolyte balance, dehydration, among others. EMERGENCY DEPARTMENT PROCEDURES: MEDICAL DECISION MAKING: There is no leukocytosis. A mild anemia was seen. There was a normal platelet count. Sodium is slightly low. No renal failure. There were some elevated liver enzymes, likely from his alcohol abuse. Patient appeared to be in a euthyroid state. Urinalysis did not show findings of infection. Aspirin and Tylenol levels were undetectable. Urine tox was negative. Alcohol level was high at 362. ECG showed a sinus tachycardia, no ischemia, no dysrhythmia. On exam, the patient was slightly tachycardic. He had no focal neurologic findings. He was not toxic or febrile. The patient was aggressively managed given his complaints of alcohol withdrawal and his history of DTs. He was given IV Phenergan, IV Zofran, IV Valium. He was given IV Tylenol. He received IV saline with multivitamins, thiamine and folate. The patient presents vomiting with some feelings of alcohol withdrawal. He was interested in alcohol detox and then alcohol rehab. The patient requires a hospital stay for his detox. I did speak with case management as well as the on-call hospitalist. I spoke with the patient about my concerns. Admission is warranted. Patient seems to be doing well since being medicated here in the ED. Prior/Outside records/notes reviewed: Discharge summary note from 01/07/24, this describes his presentation, hospital care and decision to leave AGAINST MEDICAL ADVICE. ECG per my interpretation: Indication was alcohol withdrawal. The ECG shows a sinus tachycardia with a rate of 114. There is some nonspecific ST change. There is an old anterior infarct. There is no ST elevation, no PVCs. The QTc is 460. Continuous Cardiac Monitoring per my interpretation: An order was placed for continuous cardiac monitoring. The monitor shows a rate of 105 with sinus tachycardia. Imaging/x-ray results per my interpretation: Chronic Medical/Social conditions affecting care: History of alcoholism Care/Management discussed with: Case management, the on-call hospitalist. Level of care consideration(s): After review of the information above and other included data: --I believe the patient requires escalation of care to admission Critical Care Note: I have personally spent 42 minutes of critical care time in the direct management of this patient. This includes bedside care, interpretation of diagnostic studies, and testing, discussion with consultants, patient, and family members, and other required patient management activities. This 42 minutes is in excess of all separately billable procedures. DISPOSITION: Admission Past Med/Surg History Problem List Alcoholic intoxication (Acute) Medical History Alcohol withdrawal Social History Smoking Status: Never smoker Tobacco Type: E-cigarettes / Vaping Hx Alcohol Use: Yes Alcohol type: beer Hx Substance Use: No Preferred Language: Somali Communication Ability: Effective Tool Liaison Required: No Beliefs That Will Affect Care: None Current Living Situation: Alone Feels Safe at Home: Yes Allergies Allergies Allergy/AdvReac Type Severity Reaction Status Date / Time No Known Allergies Allergy Unverified 01/06/24 19:16 Home Meds Previous Rx's Medication Instructions Recorded chlordiazepoxide HCl 25 mg capsule See Rx Instructions .Route 01/06/24 .COMPLEX #20 caps Results & Data (ED) Vital Signs Vital Signs - 24 hr 01/14/24 17:13 01/14/24 18:16 01/14/24 18:21 Temperature 36.8 C Temperature Source Temporal Artery Scan Pulse Rate 114 H 105 H Pulse Rate [Apical] Pulse Rhythm [Apical] Pulse Strength [Apical] Respiratory Rate 20 Respiratory Effort / Characteristics Non-Labored Spontaneous Respiratory Depth Normal Respiratory Pattern Blood Pressure 149/111 H Blood Pressure [Right Arm] Blood Pressure Mean 123 Blood Pressure Mean [Right Arm] Blood Pressure Position Sitting Blood Pressure Position [Right Arm] Pulse Oximetry 99 100 Oxygen Delivery Method Room Air Room Air Sepsis Recent Fever Within 48 Hours No Sepsis New/Unexplained Change in Mental Status No Sepsis Action Taken by Nursing No Action Required 01/14/24 18:21 01/14/24 19:04 01/14/24 21:08 Temperature Temperature Source Pulse Rate Pulse Rate [Apical] 105 H 74 105 H Pulse Rhythm [Apical] Regular Regular Regular Pulse Strength [Apical] Normal Normal Normal Respiratory Rate 16 16 17 Respiratory Effort / Characteristics Non-Labored Spontaneous Non-Labored Spontaneous Non-Labored Respiratory Depth Normal Normal Normal Respiratory Pattern Regular Regular Regular Blood Pressure Blood Pressure [Right Arm] 138/100 140/79 Blood Pressure Mean Blood Pressure Mean [Right Arm] 112 99 Blood Pressure Position Blood Pressure Position [Right Arm] Lying Lying Pulse Oximetry 100 97 Oxygen Delivery Method Room Air Room Air Sepsis Recent Fever Within 48 Hours Sepsis New/Unexplained Change in Mental Status Sepsis Action Taken by Nursing 01/14/24 22:11 Temperature Temperature Source Pulse Rate 112 H Pulse Rate [Apical] Pulse Rhythm [Apical] Pulse Strength [Apical] Respiratory Rate Respiratory Effort / Characteristics Respiratory Depth Respiratory Pattern Blood Pressure Blood Pressure [Right Arm] Blood Pressure Mean Blood Pressure Mean [Right Arm] Blood Pressure Position Blood Pressure Position [Right Arm] Pulse Oximetry Oxygen Delivery Method Sepsis Recent Fever Within 48 Hours Sepsis New/Unexplained Change in Mental Status Sepsis Action Taken by Skilled Nursing Medications Current Medication List: was personally reviewed by me Laboratory Data Attestation: I reviewed the patient's lab results. 01/14/24 17:20 01/14/24 17:20 Lab Results 01/14/24 01/14/24 Range/Units 17:20 19:20 WBC 5.02 (4.8-10.8) K/ul RBC 7.26 H (4.70-6.10) M/uL Hgb 13.7 L (14.0-18.0) g/dl Hct 43.4 (42.0-52.0) % MCV 59.8 L (80.0-100.0) fL MCH 18.9 L (25.0-34.0) pg MCHC 31.6 L (32.0-36.0) g/dL RDW Std Deviation 31.4 L (36.4-46.3) fL RDW Coeff of Leda 19.8 H (11.5-14.5) % Plt Count 145 (130-400) K/uL MPV 9.0 L (9.4-12.4) fL Immature Gran % (Auto) 0.8 % Neut % (Auto) 61.7 % Lymph % (Auto) 24.3 % [place] % (Auto) 12.0 % Eos % (Auto) 0.4 % Baso % (Auto) 0.8 % Neut # (Auto) 3.10 (1.40-6.50) K/uL Lymph # (Auto) 1.22 (1.20-3.40) K/uL [place] # (Auto) 0.60 H (0.11-0.59) K/uL Eos # (Auto) 0.02 (0.00-0.50) K/uL Baso # (Auto) 0.04 (0.00-0.20) K/uL Immature Gran # (Auto) 0.04 (0.01-0.20) K/uL Absolute Nucleated RBC 0.07 (0.00-0.12) K/uL Nucleated RBC % (auto) 1.4 % Microcytosis Present Target Cells 1+ Tear Drop Cells 2+ Sodium 135 L (136-145) mmol/L Potassium 4.0 (3.5-5.1) mmol/L Chloride 94 L (98-107) mmol/L Carbon Dioxide 28 (21-32) mmol/L Anion Gap 13 H (3-11) BUN 8 (6-23) mg/dl Creatinine 0.70 (0.6-1.4) mg/dl Est Cr Clr Drug Dosing Not Reportable eGFR 117.25 BUN/Creatinine Ratio 11.4 (10-20) Glucose 147 H (70-99(Fasting)) mg/dl Calcium 9.0 (8.6-10.3) mg/dl Magnesium 2.0 (1.7-2.4) mg/dl Total Bilirubin 0.8 (0.2-1.0) mg/dl AST 94 H (13-39) U/L ALT 97 H (7-52) U/L Alkaline Phosphatase 74 (34-104) U/L Total Protein 7.6 (6.0-8.3) gm/dl Albumin 4.7 (3.4-5.0) gm/dl Globulin 2.9 (2.5-4.0) gm/dl Albumin/Globulin Ratio 1.6 (0.9-2) TSH 1.351 (0.300-4.500) uIu/ml Urine Color Yellow Urine Appearance Clear (Clear) Urine pH 5.5 (4.5-7.5) Ur Specific [place] 1.007 (1.000-1.030) Urine Protein 1+ H (Negative) Urine Glucose (UA) Trace H (Negative) Urine Ketones Negative (Negative) Urine Blood 1+ H (Negative) Urine Nitrite Negative (Negative) Urine Bilirubin Negative (Negative) Urine Urobilinogen Negative (Negative) Ur Leukocyte Esterase Negative (Negative) Urine WBC (Auto) 0-5 (0-5) /hpf Urine RBC (Auto) 0-2 (0-2) /hpf U Hyaline Cast (Auto) 3-5 H (0-2) /lpf U Epithel Cells (Auto) 0-2 (0-2) /hpf Urine Bacteria (Auto) None Seen (None Seen) Salicylates < 3.0 L (3.0-30) mg/dl Urine Opiates Screen Neg (Neg) Ur Methadone, Qual Neg (Neg) Urine Fentanyl Screen Neg (Neg) Acetaminophen < 3 L (10-30) ug/ml Urine Barbiturates Neg (Neg) Ur Phencyclidine (PCP) Neg (Neg) U Amphetamin/Meth Scrn Neg (Neg) MDMA (Ecstasy) Screen Neg (Neg) U Benzodiazepines Scrn Neg (Neg) Ur Cocaine Metabolite Neg (Neg) U Marijuana (THC) Screen Neg (Neg) Ethyl Alcohol mg/dL 362.2 H (<10.0) mg/dl Administered Medications Discontinued Medications Diazepam (Diazepam 5 Mg/Ml 10ml Vial) 5 mg IV NOW STA Stop: 01/14/24 18:33 Last Admin: 01/14/24 18:52 Dose: 5 mg Documented By: Diazepam (Diazepam 5 Mg/Ml 10ml Vial) 5 mg IV NOW STA Stop: 01/14/24 20:36 Last Admin: 01/14/24 20:53 Dose: 5 mg Documented By: TRUONG Multivitamins 10 ml/ Thiamine HCl 100 mg/ Folic Acid 1 mg/Sodium Chloride 1,011.2 mls @ 500 mls/hr IV .Q2H2M ONE Stop: 01/14/24 20:14 Last Infusion: 01/14/24 21:19 Dose: Infused Documented By: Admin: 01/14/24 19:13 Dose: 500 mls/hr Documented By: TRUONG Promethazine HCl (Phenergan) 12.5 mg in 50.5 mls @ 202 mls/hr IV NOW STA Stop: 01/14/24 18:27 Last Infusion: 01/14/24 19:13 Dose: Infused Documented By: Admin: 01/14/24 18:52 Dose: 202 mls/hr Documented By: Acetaminophen (Ofirmev) 1,000 mg in 100 mls @ 400 mls/hr IV NOW STA Stop: 01/14/24 20:35 Last Infusion: 01/14/24 21:05 Dose: Infused Documented By: Admin: 01/14/24 20:29 Dose: 400 mls/hr Documented By: TRUONG Promethazine HCl (Phenergan) 6.25 mg in 50.25 mls @ 201 mls/hr IV NOW STA Stop: 01/14/24 20:35 Last Admin: 01/14/24 21:23 Dose: Not Given Documented By: LISS Ketorolac Tromethamine (Ketorolac Tromethamine 15 Mg/Ml Vial) 15 mg IV NOW ONE Stop: 01/14/24 20:31 Last Admin: 01/14/24 20:53 Dose: 15 mg Documented By: TRUONG Morphine Sulfate (Morphine Sulfate 2 Mg/Ml Carp) 2 mg IV NOW STA Stop: 01/14/24 20:22 Last Admin: 01/14/24 21:23 Dose: Not Given Documented By: LISS Ondansetron HCl (Ondansetron Inj 2 Mg/Ml 2 Ml Vial) 4 mg IV NOW STA Stop: 01/14/24 20:22 Last Admin: 01/14/24 20:29 Dose: 4 mg Documented By: TRUONG Discharge Plan Visit Data Chief Complaint: Detox Request Stated Complaint: ALCOHOL DETOX ED Provider: Arnel Obrien Discharge Problem: Alcohol abuse, Alcohol withdrawal, Vomiting, Elevated liver enzymes Patient Disposition: Admitted As Inpatient Condition: Fair Discharge Instructions Interventions: ED Discharge Assessment Last Done: 01/14/24 22:55
[2024-01-14] MEDS: diazePAM 5 MG/ML 10ML VIAL IV STA ×2 (18:52→20:53)
[2024-01-14] MEDS: PROMETHAZINE 12.5 MG/50.5 ML BAG IV STA (18:52)
[2024-01-14] MEDS: MULTI-VITAMIN INFUSION 10 ML, THIAMINE HCL 100 MG, FOLIC ACID 1 MG in SODIUM CHLORIDE 0... IV ONE (19:13)
[2024-01-14 19:50] LABS: Appearance Urine Clear (Clear); Bacteria Urine Automated None Seen (None Seen); Bilirubin Urine Negative (Negative); Blood Urine 1+ (Negative); Color Urine Yellow; Epithelial Cell Urine Auto 0-2 /hpf (0-2); Glucose Urine UA Trace (Negative); Ketones Urine Negative (Negative); Leukocyte Esterase Urine Negative (Negative); Nitrite Urine Negative (Negative); Protein Urine 1+ (Negative); RBC Urine Automated 0-2 /hpf (0-2); Specific Gravity Urine 1.007 (1.000-1.030); Urobilinogen Urine Negative (Negative); WBC Urine Automated 0-5 /hpf (0-5); pH Urine 5.5 (4.5-7.5)
--- NOTE | 2024-01-14 20:21 | History & Physical Report ---
Date of Service January 14, 2024 Assessment & Plan (1) Alcohol withdrawal: Plan: 43-year-old male with past medical history significant for thalassemia minor, tobacco use disorder, general anxiety disorder, recurrent major depression presents for alcohol detox. Patient was in the hospital on January 06 2024 for alcohol detox but he left next day. After that he went to [facility] rehab but only stayed one day there. Again started drinking heavily. He says drinking 24 beers daily. He also drinks scotch and vodka but mainly drinking beers. In last 11 days he also vomited a couple of times. No blood in the vomiting. Having headache now. Denies any blurred vision. Chronic left ear ringing for last 2 years. No runny nose or sore throat. No cough. No nausea. No chest pain or shortness of breath. No abdominal pain. Normal bowel and bladder movements. Hemodynamics are okay. Alcoholism Alcohol withdrawal Getting banana bag in the ER Will continue with IV thiamine and folic acid Alcohol withdrawal protocol with Librium and IV Ativan as needed Close monitoring telemetry History of general anxiety disorder and depression Psychiatry consult when stable. Abnormal EKG Will get echo Chronic left ear ringing Follow-up with ENT Mild transaminitis Follow repeat labs DVT prophylaxis Lovenox Disposition Telemetry Full code. History of Present Illness Chief Complaint: Alcohol detox Primary Care Provider: NO PCP 43-year-old male with past medical history significant for thalassemia minor, tobacco use disorder, general anxiety disorder, recurrent major depression presents for alcohol detox. Patient was in the hospital on January 06 2024 for alcohol detox but he left next day. After that he went to [facility] rehab but only stayed one day there. Again started drinking heavily. He says drinking 24 beers daily. He also drinks scotch and vodka but mainly drinking beers. In last 11 days he also vomited a couple of times. No blood in the vomiting. Having headache now. Denies any blurred vision. Chronic left ear ringing for last 2 years. No runny nose or sore throat. No cough. No nausea. No chest pain or shortness of breath. No abdominal pain. Normal bowel and bladder movements. Hemodynamics are okay. Past medical history. As mentioned above Past surgical history. None per records. Social history. Smoking 1 pack a day for last 18 years. Heavy alcohol use. No drug use. Family history. Father has diabetes. Hypertension. Brother has hypertension. Sister has hypertension. Allergies Allergy/AdvReac Type Severity Reaction Status Date / Time No Known Allergies Allergy Unverified 01/06/24 19:16 Past Med/Surg History Problem List Alcohol withdrawal Alcoholic intoxication (Acute) Social History Smoking Status: Never smoker Tobacco Type: E-cigarettes / Vaping Hx Alcohol Use: Yes Alcohol type: beer Hx Substance Use: No Preferred Language: Ghanaian Communication Ability: Effective Regional Director Required: No Beliefs That Will Affect Care: None Current Living Situation: Alone Feels Safe at Home: Yes Review of Systems Review of Systems: All systems reviewed & are unremarkable except as noted in HPI & below Physical Exam Physical Exam: General- Not in distress Head- atraumatic Eyes- PERRL. ENT- oropharynx clear. No drainage or erythema seen in b/l ear canals Neck- supple, no JVD. Lungs- clear to auscultation no wheezing or crackles Heart- regular rhythm; no murmur, no gallop. Abdomen- normal bowel sounds, soft, nontender, no distension Extremities- no pretibial edema, no erythema seen Neuro- alert, oriented PERRL, no facial palsy; no dysarthria; moves extremities Results & Data Results & Data Vital Signs (Past 12 Hours) Vital Signs Temp Pulse Pulse Resp BP BP Pulse Ox 01/14/24 19:04 74 16 01/14/24 18:21 105 H 16 138/100 100 01/14/24 18:21 100 01/14/24 18:16 105 H 01/14/24 17:13 36.8 C 114 H 20 149/111 H 99 O2 Del Method 01/14/24 19:04 01/14/24 18:21 Room Air 01/14/24 18:21 Room Air 01/14/24 18:16 01/14/24 17:13 Room Air Diagnostic Findings Laboratory Results WBC 5.02 K/ul (4.8-10.8) 01/14/24 17:20 RBC 7.26 M/uL (4.70-6.10) H 01/14/24 17:20 Hgb 13.7 g/dl (14.0-18.0) L 01/14/24 17:20 Hct 43.4 % (42.0-52.0) 01/14/24 17:20 MCV 59.8 fL (80.0-100.0) L 01/14/24 17:20 MCH 18.9 pg (25.0-34.0) L 01/14/24 17:20 MCHC 31.6 g/dL (32.0-36.0) L 01/14/24 17:20 RDW Std Deviation 31.4 fL (36.4-46.3) L 01/14/24 17:20 RDW Coeff of Leda 19.8 % (11.5-14.5) H 01/14/24 17:20 Plt Count 145 K/uL (130-400) 01/14/24 17:20 MPV 9.0 fL (9.4-12.4) L 01/14/24 17:20 Immature Gran % (Auto) 0.8 % 01/14/24 17:20 Neut % (Auto) 61.7 % 01/14/24 17:20 Lymph % (Auto) 24.3 % 01/14/24 17:20 [place] % (Auto) 12.0 % 01/14/24 17:20 Eos % (Auto) 0.4 % 01/14/24 17:20 Baso % (Auto) 0.8 % 01/14/24 17:20 Neut # (Auto) 3.10 K/uL (1.40-6.50) 01/14/24 17:20 Lymph # (Auto) 1.22 K/uL (1.20-3.40) 01/14/24 17:20 [place] # (Auto) 0.60 K/uL (0.11-0.59) H 01/14/24 17:20 Eos # (Auto) 0.02 K/uL (0.00-0.50) 01/14/24 17:20 Baso # (Auto) 0.04 K/uL (0.00-0.20) 01/14/24 17:20 Immature Gran # (Auto) 0.04 K/uL (0.01-0.20) 01/14/24 17:20 Absolute Nucleated RBC 0.07 K/uL (0.00-0.12) 01/14/24 17:20 Nucleated RBC % (auto) 1.4 % 01/14/24 17:20 Microcytosis Present 01/14/24 17:20 Target Cells 1+ 01/14/24 17:20 Tear Drop Cells 2+ 01/14/24 17:20 Sodium 135 mmol/L (136-145) L 01/14/24 17:20 Potassium 4.0 mmol/L (3.5-5.1) 01/14/24 17:20 Chloride 94 mmol/L (98-107) L 01/14/24 17:20 Carbon Dioxide 28 mmol/L (21-32) 01/14/24 17:20 Anion Gap 13 (3-11) H 01/14/24 17:20 BUN 8 mg/dl (6-23) 01/14/24 17:20 Creatinine 0.70 mg/dl (0.6-1.4) 01/14/24 17:20 Est Cr Clr Drug Dosing Not Reportable 01/14/24 17:20 eGFR 117.25 01/14/24 17:20 BUN/Creatinine Ratio 11.4 (10-20) 01/14/24 17:20 Glucose 147 mg/dl (70-99(Fasting)) H 01/14/24 17:20 Calcium 9.0 mg/dl (8.6-10.3) 01/14/24 17:20 Magnesium 2.0 mg/dl (1.7-2.4) 01/14/24 17:20 Total Bilirubin 0.8 mg/dl (0.2-1.0) 01/14/24 17:20 AST 94 U/L (13-39) H 01/14/24 17:20 ALT 97 U/L (7-52) H 01/14/24 17:20 Alkaline Phosphatase 74 U/L (34-104) 01/14/24 17:20 Total Protein 7.6 gm/dl (6.0-8.3) 01/14/24 17:20 Albumin 4.7 gm/dl (3.4-5.0) 01/14/24 17:20 Globulin 2.9 gm/dl (2.5-4.0) 01/14/24 17:20 Albumin/Globulin Ratio 1.6 (0.9-2) 01/14/24 17:20 TSH 1.351 uIu/ml (0.300-4.500) 01/14/24 17:20 Urine Color Yellow 01/14/24 19:20 Urine Appearance Clear (Clear) 01/14/24 19:20 Urine pH 5.5 (4.5-7.5) 01/14/24 19:20 Ur Specific [place] 1.007 (1.000-1.030) 01/14/24 19:20 Urine Protein 1+ (Negative) H 01/14/24 19:20 Urine Glucose (UA) Trace (Negative) H 01/14/24 19:20 Urine Ketones Negative (Negative) 01/14/24 19:20 Urine Blood 1+ (Negative) H 01/14/24 19:20 Urine Nitrite Negative (Negative) 01/14/24 19:20 Urine Bilirubin Negative (Negative) 01/14/24 19:20 Urine Urobilinogen Negative (Negative) 01/14/24 19:20 Ur Leukocyte Esterase Negative (Negative) 01/14/24 19:20 Urine WBC (Auto) 0-5 /hpf (0-5) 01/14/24 19:20 Urine RBC (Auto) 0-2 /hpf (0-2) 01/14/24 19:20 U Hyaline Cast (Auto) 3-5 /lpf (0-2) H 01/14/24 19:20 U Epithel Cells (Auto) 0-2 /hpf (0-2) 01/14/24 19:20 Urine Bacteria (Auto) None Seen (None Seen) 01/14/24 19:20 Salicylates < 3.0 mg/dl (3.0-30) L 01/14/24 17:20 Acetaminophen < 3 ug/ml (10-30) L 01/14/24 17:20 Ethyl Alcohol mg/dL 362.2 mg/dl (<10.0) H 01/14/24 17:20 ECG Additional Comments: ECG. Sinus tachycardia rate of 114. Left anterior fascicular block. QTc 460. Code Status & VTE Plan VTE Prophylaxis Plan VTE Prophylaxis will be ordered: Yes
[2024-01-14] MEDS: ACETAMINOPHEN 1,000 MG/100 ML VIAL IV STA (20:29)
[2024-01-14] MEDS: ONDANSETRON INJ 2 MG/ML 2 ML VIAL IV STA (20:29)
[2024-01-14 20:40] LABS: Amphetamines+Metham, Urine Neg (Neg); Barbiturates, Urine Neg (Neg); Benzodiazepine, Urine Neg (Neg); Cocaine, Urine Neg (Neg); Fentanyl, Urine Neg (Neg); MDMA (Ecstacy), Urine Neg (Neg); Marijuana, Urine Neg (Neg); Methadone, Urine Neg (Neg); Opiate, Urine Neg (Neg); Phencyclidine, Urine Neg (Neg)
[2024-01-14] MEDS: KETOROLAC TROMETHAMINE 15 MG/ML VIAL IV ONE (20:53)
[2024-01-14] MEDS: MoRPHine SULFATE 2 MG/ML CARP IV STA (21:23)
[2024-01-14] MEDS: PROMETHAZINE 6.25 MG/50.25 ML BAG IV STA (21:23)
[2024-01-14] MEDS ORDERED: cloNIDine HCL 0.1 MG TAB PO PRN (23:03)
[2024-01-14] MEDS ORDERED: Ativan IV Alcohol Withdrawal--Active Protocol IV PRN (23:03)
[2024-01-14] MEDS ORDERED: POLYETHYLENE (MIRALAX) 17 GM PACK PO PRN (23:03)
[2024-01-14] MEDS ORDERED: NITROGLYCERIN SL 0.4 MG/TAB TAB SL PRN (23:03)
[2024-01-14] MEDS ORDERED: chlordiazePOXIDE ALCOHOL WITHDRAWL 50MG PO STA (23:03)
[2024-01-14] MEDS ORDERED: ACETAMINOPHEN 325 MG TAB PO PRN (23:03)
[2024-01-14] MEDS: LORazepam 2 MG/1 ML VIAL IV PRN (23:27)
[2024-01-14] MEDS: chlordiazePOXIDE HCl 25 MG CAP PO SCH ×2 (23:27→23:29)
[2024-01-14] MEDS: SODIUM CHLORIDE 0.9% 1,000 ML IV SCH (23:27)
[2024-01-15] MEDS: ENOXAPARIN INJ 40 MG/0.4 ML SYR SQ SCH (01:06)
[2024-01-15 06:25] LABS: Albumin Level 3.5 gm/dl (3.4-5.0); Bilirubin Direct 0.2 mg/dl (0-0.2); Bilirubin,Total 0.9 mg/dl (0.2-1.0); Calcium 7.7 mg/dl (8.6-10.3); Magnesium 1.7 mg/dl (1.7-2.4); Potassium 4.1 mmol/L (3.5-5.1)
[2024-01-15 06:33] LABS: BUN Creatinine Ratio 11.4 (10-20); Creatinine Clr Calc Pharmacy 136.1 ml/min; Hematocrit (blood only) 30.3 % (42.0-52.0); Hemoglobin 10.1 g/dl (14.0-18.0); Mean Corpuscular Hemoglobin 19.5 pg (25.0-34.0); Mean Corpuscular Hgb Conc 33.3 g/dL (32.0-36.0); Mean Corpuscular Volume 58.4 fL (80.0-100.0); Mean Platelet Volume 10.2 fL (9.4-12.4); Nucleated RBC # (auto) 0.07 K/uL (0.00-0.12); Phosphorus 2.4 mg/dl (2.5-4.9); Platelet Count 115 K/uL (130-400); RDW Coefficient of Variation 17.5 % (11.5-14.5); RDW Standard Deviation 30.9 fL (36.4-46.3); Red Blood Count 5.19 M/uL (4.70-6.10); Total Protein 5.5 gm/dl (6.0-8.3); White Blood Count 3.44 K/ul (4.8-10.8)
[2024-01-15 06:55] LABS: Basophilic Stippling 1+; Basophils # (auto) 0.02 K/uL (0.00-0.20); Basophils % (auto) 0.6 %; Eosinophils # (auto) 0.04 K/uL (0.00-0.50); Eosinophils % (auto) 1.2 %; Hypochromasia Present; Immature Granulocytes # (auto) 0.02 K/uL (0.01-0.20); Immature Granulocytes % (auto) 0.6 %; Lymphocytes # (auto) 1.11 K/uL (1.20-3.40); Lymphocytes % (auto) 32.3 %; Monocytes # (auto) 0.35 K/uL (0.11-0.59); Monocytes % (auto) 10.2 %; Neutrophils % (auto) 55.1 %; Ovalocytes 1+; Polychromasia 1+; Target Cells 1+; Tear Drop Cells 2+
[2024-01-15 07:00] LABS: Folate (Folic Acid),Ser orPlas 8.21 ng/ml (>5.38)
[2024-01-15] MEDS: LORazepam 2 MG/1 ML VIAL IV PRN ×2 (07:40→09:36)
--- NOTE | 2024-01-15 07:58 | Electrocardiogram Report ---
Test Reason : Blood Pressure : */* mmHG Vent. Rate : 114 BPM Atrial Rate : 114 BPM P-R Int : 152 ms QRS Dur : 92 ms QT Int : 334 ms P-R-T Axes : 75 -47 71 degrees QTcB Int : 460 ms Sinus tachycardia Left anterior fascicular block Poor R wave progression, consider anterior GA vs. lead placement vs. LVH Abnormal ECG When compared with ECG of 06-Jan-2024 17:06, Left anterior fascicular block is now Present PRWP now present Confirmed by Jose Berrios ([id number] on 01/15/2024 7:58:06 AM Referred By: Confirmed By: Jose Berrios
[2024-01-15] MEDS: THIAMINE HCL 100 MG in SYRINGE 9 ML IV SCH (08:12)
[2024-01-15] MEDS: FOLIC ACID 1 MG in SYRINGE 9.8 ML IV SCH (08:12)
[2024-01-15] MEDS: POT PHOSPHATE MONOBASIC W/ SOD TAB PO SCH (09:23)
--- NOTE | 2024-01-15 14:48 | Hospitalist Progress Note ---
Date of Service January 15, 2024 Assessment & Plan (1) Alcohol withdrawal: Plan: 43-year-old male with past medical history significant for thalassemia minor, tobacco use disorder, general anxiety disorder, recurrent major depression presents for alcohol detox. Patient was in the hospital on January 06 2024 for alcohol detox but he left next day. After that he went to [facility] rehab but only stayed one day there. Again started drinking heavily. He says drinking 24 beers daily. He also drinks scotch and vodka but mainly drinking beers. In last 11 days he also vomited a couple of times. No blood in the vomiting. Having headache now. Denies any blurred vision. Chronic left ear ringing for last 2 years. No runny nose or sore throat. No cough. No nausea. No chest pain or shortness of breath. No abdominal pain. Normal bowel and bladder movements. Hemodynamics are okay. 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 Pancytopenia Likely due to alcohol use Monitor CBC Hypophosphatemia Replete and monitor H/O Anxiety disorder and depression Consider Psychiatry consult if needed Abnormal EKG Patient denies chest pain, dyspnea Echo pending Chronic left ear ringing Follow-up with ENT as outpatient Mild transaminitis Monitor LFTs DVT prophylaxis Lovenox SQ: May need to hold if thrombocytopenia worsens CODE STATUS Full code Admission and Anticipated Discharge Date Admission Date: January 14, 2024 Subjective Patient is seen and examined at bedside States having nausea associated with vomiting overnight Feels shaky and anxious during my encounter this morning Denies any chest pain, dyspnea, abdominal pain No other complaints Review of Systems Review of Systems: All systems reviewed & are unremarkable except as noted in Subjective Physical Exam Physical Exam: Physical Exam: Vitals signs as noted above General Appearance:Moderately built and nourished, no apparent distress Head: normocephalic, Atraumatic Eyes: normal inspection, EOMI Neck: supple, Trachea midline Respiratory/Chest: Normal breath sounds, CTA, No accessory muscle use Cardiovascular: S1, S2, No murmur Abdomen/GI:Soft, Non tender, Bowel sounds present Extremities/Musculoskeletal:normal inspection, no edema Neurologic/Psych:AAOX3, grossly no focal neurological deficits,+Tremor Skin: normal color, warm Results & Data Results & Data Vital Signs (Past 12 Hours) Vital Signs Temp Pulse Pulse Resp BP Pulse Ox O2 Del Method 01/15/24 11:35 37.1 C 88 18 131/80 96 Room Air 01/15/24 11:02 36.3 C L 88 16 143/85 H 96 Room Air 01/15/24 08:00 67 01/15/24 07:31 37.2 C 92 H 20 155/84 H 96 Room Air 01/15/24 03:42 36.8 C 98 H 16 130/79 97 Room Air Laboratory Results Short CBC 01/14/24 01/15/24 Range/Units 17:20 05:27 WBC 5.02 3.44 L (4.8-10.8) K/ul Hgb 13.7 L 10.1 L D (14.0-18.0) g/dl Hct 43.4 30.3 L (42.0-52.0) % Plt Count 145 115 L (130-400) K/uL BMP 01/14/24 01/15/24 17:20 05:27 Sodium 135 L 140 Potassium 4.0 4.1 Chloride 94 L 103 Carbon Dioxide 28 28 BUN 8 8 Creatinine 0.70 0.70 Glucose 147 H 82 Calcium 9.0 7.7 L Liver Function 01/14/24 01/15/24 Range/Units 17:20 05:27 Total Bilirubin 0.8 0.9 (0.2-1.0) mg/dl Direct Bilirubin 0.2 (0-0.2) mg/dl AST 94 H 107 H (13-39) U/L ALT 97 H 83 H (7-52) U/L Alkaline Phosphatase 74 65 (34-104) U/L Albumin 4.7 3.5 (3.4-5.0) gm/dl Urine 01/14/24 Range/Units 19:20 Urine Color Yellow Urine Appearance Clear (Clear) Urine pH 5.5 (4.5-7.5) Ur Specific [place] 1.007 (1.000-1.030) Urine Protein 1+ H (Negative) Urine Glucose (UA) Trace H (Negative)
[2024-01-15] MEDS: MELATONIN 3 MG TAB PO PRN (20:52)
[2024-01-15] MEDS: ONDANSETRON INJ 2 MG/ML 2 ML VIAL IV PRN (21:02)
[2024-01-16 07:30] LABS: Hematocrit (blood only) 30.7 % (42.0-52.0); Hemoglobin 9.7 g/dl (14.0-18.0); Mean Corpuscular Hgb Conc 31.6 g/dL (32.0-36.0); Mean Corpuscular Volume 60.1 fL (80.0-100.0); Mean Platelet Volume 10.1 fL (9.4-12.4); Nucleated RBC % (auto) 2.6 %; Platelet Count 100 K/uL (130-400); RDW Coefficient of Variation 18.3 % (11.5-14.5); RDW Standard Deviation 31.7 fL (36.4-46.3); Red Blood Count 5.11 M/uL (4.70-6.10); White Blood Count 3.86 K/ul (4.8-10.8)
[2024-01-16 07:40] LABS: Albumin Globulin Ratio 1.5 (0.9-2); Albumin Level 3.4 gm/dl (3.4-5.0); BUN Creatinine Ratio 8.3 (10-20); Bilirubin,Total 1.2 mg/dl (0.2-1.0); Calcium 8.2 mg/dl (8.6-10.3); Creatinine Clr Calc Pharmacy 132.3 ml/min; Globulin 2.2 gm/dl (2.5-4.0); Phosphorus 2.9 mg/dl (2.5-4.9); Potassium 3.4 mmol/L (3.5-5.1); Total Protein 5.6 gm/dl (6.0-8.3)
[2024-01-16] MEDS: POTASSIUM CHLORIDE CRTAB 20 MEQ TABCR PO ONE (09:26)
--- NOTE | 2024-01-16 12:29 | Communication Note ---
Date of Service: January 16, 2024 Received a message from RN that patient prefers to leave AMA. Tried to discuss with patient--Patient signed AMA paper and left before I could reach him.
--- NOTE | 2024-01-16 12:29 | Hospitalist Progress Note ---
Date of Service January 16, 2024 Assessment & Plan (1) Alcohol withdrawal: Plan: 43-year-old male with past medical history significant for thalassemia minor, tobacco use disorder, general anxiety disorder, recurrent major depression presents for alcohol detox. Patient was in the hospital on January 06 2024 for alcohol detox but he left next day. After that he went to [facility] rehab but only stayed one day there. Again started drinking heavily. He says drinking 24 beers daily. He also drinks scotch and vodka but mainly drinking beers. In last 11 days he also vomited a couple of times. No blood in the vomiting. Having headache now. Denies any blurred vision. Chronic left ear ringing for last 2 years. No runny nose or sore throat. No cough. No nausea. No chest pain or shortness of breath. No abdominal pain. Normal bowel and bladder movements. Hemodynamics are okay. 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 Pancytopenia Likely due to alcohol use Monitor CBC May need to hold anticoagulation if thrombocytopenia worsens Hypophosphatemia Replete and monitor H/O Anxiety disorder and depression Consider Psychiatry consult if needed Abnormal EKG Patient denies chest pain, dyspnea Echo pending Chronic left ear ringing Follow-up with ENT as outpatient Mild transaminitis Monitor LFTs DVT prophylaxis Lovenox SQ for now CODE STATUS Full code Admission and Anticipated Discharge Date Admission Date: January 14, 2024 Subjective Patient is seen and examined at bedside States feeling better today Shakiness /tremor resolved Feels less anxious Slept well overnight Denies any chest pain, dyspnea, abdominal pain Interested in drug rehab placement Review of Systems Review of Systems: All systems reviewed & are unremarkable except as noted in Subjective Physical Exam Physical Exam: Physical Exam: Vitals signs as noted above General Appearance:Moderately built and nourished, no apparent distress Head: normocephalic, Atraumatic Eyes: normal inspection, EOMI Neck: supple, Trachea midline Respiratory/Chest: Normal breath sounds, CTA, No accessory muscle use Cardiovascular: S1, S2, No murmur Abdomen/GI:Soft, Non tender, Bowel sounds present Extremities/Musculoskeletal:normal inspection, no edema Neurologic/Psych:AAOX3, grossly no focal neurological deficits Skin: normal color, warm Results & Data Results & Data Vital Signs (Past 12 Hours) Vital Signs Temp Pulse Pulse Resp BP Pulse Ox O2 Del Method 01/16/24 08:00 73 01/16/24 07:55 36.6 C 82 18 133/84 96 Room Air 01/16/24 03:02 36.9 C 80 16 138/79 98 Room Air
--- NOTE | 2024-01-16 13:52 | Discharge Summary ---
Date of Service January 16, 2024 Admission HPI Per Admitting Provider 43-year-old male with past medical history significant for thalassemia minor, tobacco use disorder, general anxiety disorder, recurrent major depression presents for alcohol detox. Patient was in the hospital on January 06 2024 for alcohol detox but he left next day. After that he went to [facility] rehab but only stayed one day there. Again started drinking heavily. He says drinking 24 beers daily. He also drinks scotch and vodka but mainly drinking beers. In last 11 days he also vomited a couple of times. No blood in the vomiting. Having headache now. Denies any blurred vision. Chronic left ear ringing for last 2 years. No runny nose or sore throat. No cough. No nausea. No chest pain or shortness of breath. No abdominal pain. Normal bowel and bladder movements. Hemodynamics are okay. Past medical history. As mentioned above Past surgical history. None per records. Social history. Smoking 1 pack a day for last 18 years. Heavy alcohol use. No drug use. Family history. Father has diabetes. Hypertension. Brother has hypertension. Sister has hypertension. Principal Diagnosis Alcoholism Alcohol withdrawal Pancytopenia Hypophosphatemia Discharge Data Allergies Allergy/AdvReac Type Severity Reaction Status Date / Time No Known Allergies Allergy Unverified 01/15/24 17:59 Consultations 01/14/24 19:16 ED Decision to Admit Stat Hospital Course (1) Alcohol withdrawal: 43-year-old male with past medical history significant for thalassemia minor, tobacco use disorder, general anxiety disorder, recurrent major depression presents for alcohol detox. Patient was in the hospital on January 06 2024 for alcohol detox but he left next day. After that he went to [facility] rehab but only stayed one day there. Again started drinking heavily. He says drinking 24 beers daily. He also drinks scotch and vodka but mainly drinking beers. In last 11 days he also vomited a couple of times. No blood in the vomiting. Having headache now. Denies any blurred vision. Chronic left ear ringing for last 2 years. No runny nose or sore throat. No cough. No nausea. No chest pain or shortness of breath. No abdominal pain. Normal bowel and bladder movements. Hemodynamics are okay. 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 Patient left AGAINST MEDICAL ADVICE Pancytopenia Likely due to alcohol use Monitor CBC May need to hold anticoagulation if thrombocytopenia worsens Hypophosphatemia Replete and monitor H/O Anxiety disorder and depression Consider Psychiatry consult if needed Abnormal EKG Patient denies chest pain, dyspnea Echo pending Chronic left ear ringing Follow-up with ENT as outpatient Mild transaminitis Monitor LFTs DVT prophylaxis Lovenox SQ for now CODE STATUS Full code Disposition AGAINST MEDICAL ADVICE Total Time Total Time Spent Total Time Spent (In Minutes): 25 Discharge Plan Discharge Items Patient Disposition: Against Medical Advice Reason For Visit: ALCOHOL DETOX Condition on Discharge: Fair Activity: As commented below Non-emergency contact: Primary Care Provider Follow-up/Referrals: PCP,NO [Primary Care Provider] - Pending Studies at Discharge: No Stand-Alone Forms: Dotspin, Smoking Cessation Medications and DC Order Prescriptions: No Action No Known Home Medications Discharge Orders: Left Against Medical Advice (Routine); Ordered 01/16/24 Ordered By: Rodríguez Baird Admission Data Admit Date/Time: 01/14/24 20:05 Attending Provider: Rodríguez Baird Admit Provider: Gil Das Primary Care Provider: PCP,NO Other Providers: Gil Das
[2024-01-16] MEDS ORDERED: chlordiazePOXIDE HCl 25 MG CAP PO SCH (22:15)
== END 2024-01-16 13:47 | disposition left against medical advice (07) | DRG 894 ==
LOC: ED 16:56 → 2S 20:05